=== PATIENT | female | born 1960 | race African-American/Black ===

== ENCOUNTER 2017-09-03 14:10 | Emergency (ER) | payer MEDICARE, MEDICAID ==
[2017-09-03] MEDS ORDERED: Lorazepam 1 MG TAB ONE (15:00)
== END 2017-09-03 15:08 | disposition home or self-care (01) ==
LOC: ERS 14:10
DX: F43.0 Acute stress reaction (principal); I11.0 Hypertensive heart disease with heart failure; I50.9 Heart failure, unspecified; J44.9 Chronic obstructive pulmonary disease, unspecified; E78.5 Hyperlipidemia, unspecified; E11.9 Type 2 diabetes mellitus without complications; F41.9 Anxiety disorder, unspecified; Z87.891 Personal history of nicotine dependence; Z79.82 Long term (current) use of aspirin; Z79.899 Other long term (current) drug therapy
CPT/HCPCS: 99283

== ENCOUNTER 2018-02-26 11:13 | Emergency (ER) | payer MEDICARE, MEDICAID ==
[2018-02-26 12:34] LABS: #Basophils 0.1 thou/uL (0.0-0.2); #Eosinphils 0.1 thou/uL (0.0-0.7); #Lymphocytes 2.3 thou/uL (1.20-3.40); #Monocytes 0.9 thou/uL (0.11-0.59); #Neutrophils 9.1 thou/uL (1.40-6.50); %Basophils 0.5 % (0.0-1.0); %Eosinophils 0.9 % (0.0-10.0); %Lymphocytes 18.4 % (21.0-51.0); %Monocytes 7.3 % (0.0-10.0); %Neutrophils 72.9 % (42.0-75.0); Hemoglobin 12.2 g/dL (12.0-16.0); Mean Corpuscular HGB CONC 32.3 g/dL (32.0-36.0); Mean Corpuscular Hemoglobin 30.6 pg (27.0-31.0); Mean Corpuscular Volume 94.8 fl (81.0-99.0); Mean Platelet Volume 8.2 fL (7.4-10.4); Platelet Count 228 thou/uL (130-400); RBC Distribution Width 13.1 % (11.5-14.5); Red Blood Cell (RBC) Count 3.99 mill/uL (4.20-5.40); White Blood Cell (WBC) Count 12.4 thou/uL (4.8-10.8)
[2018-02-26 12:53] LABS: ALT (SGPT) 8 U/L (8-55); AST (SGOT) 11 U/L (5-34); Alkaline Phosphatase 110 U/L (40-150); Anion Gap 11 mmol/L (10-20); BUN (Urea Nitrogen) 14 mg/dL (9.8-20.1); Bilirubin, Total 0.6 mg/dL (0.2-1.2); Calc. Creatinine Clearance 0 mL/min (70-130); Calcium 9.6 mg/dL (7.8-10.44); Carbon Dioxide 32 mmol/L (22-29); Chloride 96 mmol/L (98-107); Estimated GFR-MDRD 62; Globulin 3.4 g/dL (2.4-3.5); Glucose 193 mg/dL (70-105); Potassium 3.2 mmol/L (3.5-5.1); Protein, Total 7.4 g/dL (6.0-8.3); Sodium 136 mmol/L (136-145)
[2018-02-26] MEDS ORDERED: Indomethacin 25 mg Capsule PO SCH (16:00)
--- NOTE | 2018-02-26 16:20 | RAD ---
THREE VIEWS OF THE LEFT FOOT 02/26/18 INDICATION: History of gout flare up. FINDINGS: There is diffuse osteopenia. No periarticular erosive change is evident. No soft tissue calcification s are noted. There is diffuse soft tissue swelling of the left foot. No acute osseous abnormality is evident. IMPRESSION: 1. Diffuse soft tissue swelling left forefoot. 2. No periarticular erosive changes evident. POS: [facility]
--- NOTE | 2018-02-26 16:21 | RAD ---
THREE VIEWS LEFT ANKLE: History: Left ankle pain. Comparison: None. FINDINGS: There is soft tissue swelling of the ankle and foot. Enthesopathic changes are seen off the calcaneus . There is mild to moderate degenerative change involving the midfoot. IMPRESSION: No acute osseous abnormality. POS: [facility]
--- NOTE | 2018-02-26 18:54 | ULT ---
LEFT LOWER EXTREMITY VENOUS ULTRASOUND: 02/26/18 HISTORY: Bilateral gout with left lower extremity edema for four days. TECHNIQUE: Multiplanar penaloza scale and color doppler images were obtained in a left lower extremity venous ultras ound. Spectral analysis of the doppler waveforms were performed. FINDINGS: The left common femoral vein, profunda femoral vein, superficial femoral vein and popliteal vein are normal in appearance without visible thrombus. These vessels demonstrate normal compression, flow and augmentation. Posterior tibial vein and greater saphenous vein are also patent. IMPRESSION: No evidence of left lower extremity DVT. POS: [facility]
== END 2018-02-26 18:44 | disposition home or self-care (01) ==
LOC: ERS 11:13
DX: M79.662 Pain in left lower leg (principal); E11.9 Type 2 diabetes mellitus without complications; I11.0 Hypertensive heart disease with heart failure; I50.9 Heart failure, unspecified; E66.9 Obesity, unspecified; J44.9 Chronic obstructive pulmonary disease, unspecified; M10.9 Gout, unspecified; F41.9 Anxiety disorder, unspecified; Z87.891 Personal history of nicotine dependence; Z79.899 Other long term (current) drug therapy; Z79.82 Long term (current) use of aspirin
CPT/HCPCS: 36415; 80053; 84550; 85025

== ENCOUNTER 2018-03-28 10:48 | Observation (INO) | payer MEDICARE, MEDICAID ==
[2018-03-28 12:01] LABS: Mean Corpuscular HGB CONC 33.7 g/dL (32.0-36.0); Mean Corpuscular Hemoglobin 31.1 pg (27.0-31.0); Mean Corpuscular Volume 92.1 fl (81.0-99.0); Mean Platelet Volume 9.4 fL (7.4-10.4); Platelet Count 247 thou/uL (130-400); RBC Distribution Width 13.4 % (11.5-14.5); Red Blood Cell (RBC) Count 4.19 mill/uL (4.20-5.40); White Blood Cell (WBC) Count 13.9 thou/uL (4.8-10.8)
[2018-03-28 12:33] LABS: Anion Gap 18 mmol/L (10-20); BUN (Urea Nitrogen) 32 mg/dL (9.8-20.1); Calc. Creatinine Clearance 93 mL/min (70-130); Calcium 9.8 mg/dL (7.8-10.44); Carbon Dioxide 27 mmol/L (22-29); Chloride 94 mmol/L (98-107); Estimated GFR-MDRD 57; Glucose 258 mg/dL (70-105); Potassium 4.1 mmol/L (3.5-5.1); Sodium 135 mmol/L (136-145)
[2018-03-28] MEDS ORDERED: Lidocaine 1% (PF) 30 ML VIAL ONE (13:23)
[2018-03-28 13:30] LABS: Prothrombin Time 13.3 SEC (12.0-14.7)
[2018-03-28 13:35] LABS: PTT 26.4 SEC (22.9-36.1)
[2018-03-28] MEDS ORDERED: Midazolam HCl 2 mg/2 ml Vial ONE (13:43)
[2018-03-28] MEDS ORDERED: Meperidine HCl/PF 25 MG/ML VIAL ONE (13:44)
--- NOTE | 2018-03-28 14:12 | EKG ---
Test Reason : PREOP Blood Pressure : / mmHG Vent. Rate : 080 BPM Atrial Rate : 080 BPM P-R Int : 144 ms QRS Dur : 146 ms QT Int : 438 ms P-R-T Axes : 038 -14 103 degrees QTc Int : 505 ms Normal sinus rhythm Left bundle branch block Abnormal ECG Confirmed by AUSTIN SUMNER ([id number]) on 03/28/2018 2:11:37 PM Referred By: SHARLA Confirmed By:AUSTIN SUMNER
[2018-03-28] MEDS ORDERED: Propofol 500 MG/50 ML VIAL ONE (14:51)
[2018-03-28] MEDS ORDERED: PROPOFOL 200 MG/20 ML VIAL ONE (16:33)
[2018-03-28] MEDS ORDERED: Fentanyl 100 MCG/2 ML VIAL ONE (16:40)
[2018-03-28] MEDS ORDERED: Sodium Chloride 0.9% 10 ML ONE (16:42)
[2018-03-28] MEDS ORDERED: Nitroglycerin 0.4 MG TAB (25 Tab Bottle) SL PRN (18:05)
[2018-03-28] MEDS ORDERED: traMADol HCl 50 MG TAB PO PRN (18:05)
[2018-03-28] MEDS ORDERED: Mag-Al 1200 mg/1200 mg/30 ML UDCUP PO PRN (18:05)
[2018-03-28] MEDS ORDERED: Bisacodyl 10 MG SUPP PR PRN (18:05)
[2018-03-28] MEDS ORDERED: Acetaminophen 325 MG TAB PO PRN (18:05)
[2018-03-28] MEDS ORDERED: Bisacodyl 5 MG TAB PO PRN (18:05)
[2018-03-28] MEDS ORDERED: Temazepam 15 MG CAP PO PRN (18:05)
[2018-03-28] MEDS ORDERED: Ondansetron HCl/PF 4 MG/2 ML Vial IVP PRN (18:05)
[2018-03-28] MEDS ORDERED: Silver Sulfadiazine 1% Cream 50 GM JAR TOP PRN (18:05)
[2018-03-28] MEDS ORDERED: diphenhydrAMINE 25 MG CAP PO PRN (18:05)
[2018-03-28] MEDS ORDERED: Famotidine 20 MG TAB PO PRN (18:11)
[2018-03-28] MEDS ORDERED: Pregabalin 50 MG CAP PO PRN (18:15)
[2018-03-28] MEDS ORDERED: Acetaminophen/Codeine 30-300mg Tablet PO PRN ×2 (18:15)
[2018-03-28 18:21] VITALS: BMI 44.0
--- NOTE | 2018-03-28 19:20 | RAD ---
PORTABLE CHEST ONE VIEW 03/28/18 at 6:24 p.m. HISTORY: Post BIV. FINDINGS: Comparison made with the exam of 08/02/17. The heart size is borderline. A left sided AICD is present. No lobar consolidation, pneumothorax, fra nk pulmonary edema, or pleural effusions are seen. IMPRESSION: No acute process. POS: [facility]
[2018-03-28] MEDS: Lorazepam 0.5 MG TAB PO SCH (19:53)
[2018-03-28] MEDS: Magnesium Oxide 400 MG TAB PO SCH (19:53)
[2018-03-28] MEDS: Carvedilol 25 MG TAB PO SCH (19:53)
[2018-03-28] MEDS: Metoclopramide HCl 10 MG TAB PO SCH (19:53)
[2018-03-28] MEDS: Ferrous Sulfate 325 MG TAB PO SCH (19:53)
[2018-03-28] MEDS: Clindamycin 150 MG CAP PO SCH (19:53)
[2018-03-28] MEDS: HYDROcodone/Acetaminophen 10/325 mg Tablet PO SCH (19:54)
[2018-03-28] MEDS: Sacubitril 49 MG/Valsartan 51 MG TABLET PO SCH (20:39)
[2018-03-28] MEDS ORDERED: Atorvastatin Calcium 40 MG TAB PO SCH (21:00)
[2018-03-28] MEDS ORDERED: hydrALAZINE 25 MG TAB PO SCH (21:00)
[2018-03-28] MEDS ORDERED: Montelukast Sodium 10 mg Tablet PO SCH (21:00)
[2018-03-29] MEDS: Clindamycin 150 MG CAP PO SCH (04:16)
[2018-03-29] MEDS: HYDROcodone/Acetaminophen 10/325 mg Tablet PO SCH ×2 (04:16→10:59)
[2018-03-29 08:29] VITALS: BP 102/63; TEMP 97.3
[2018-03-29] MEDS: Lorazepam 0.5 MG TAB PO SCH (08:46)
[2018-03-29] MEDS: Ferrous Sulfate 325 MG TAB PO SCH (08:46)
[2018-03-29] MEDS: Carvedilol 25 MG TAB PO SCH (08:46)
[2018-03-29] MEDS: Magnesium Oxide 400 MG TAB PO SCH (08:46)
[2018-03-29] MEDS: Metoclopramide HCl 10 MG TAB PO SCH (08:47)
[2018-03-29] MEDS: Sacubitril 49 MG/Valsartan 51 MG TABLET PO SCH (08:47)
[2018-03-29] MEDS ORDERED: Colchicine 0.6 MG TAB PO SCH (09:00)
[2018-03-29] MEDS ORDERED: INSULIN DETEMIR SC SCH (09:00)
[2018-03-29] MEDS ORDERED: Fluticasone Propionate Nasal Spray 16 gm Bottle NASAL SCH (09:00)
[2018-03-29] MEDS ORDERED: Allopurinol 100 MG TAB PO SCH (09:00)
[2018-03-29] MEDS ORDERED: PRE FILLED SC SCH (09:00)
[2018-03-29] MEDS ORDERED: Torsemide 20 MG TAB PO SCH (09:00)
[2018-03-29] MEDS ORDERED: Aspirin 81 mg Enteric Coated Tablet PO SCH (09:00)
[2018-03-30] MEDS ORDERED: Metolazone 2.5 MG TAB PO SCH (08:30)
== END 2018-03-29 12:00 | disposition home or self-care (01) ==
LOC: SDC 10:48 → 2SW 17:47
PROVIDERS: ADMIT Internal Medicine Cardiovascular Disease; ATTEND Internal Medicine Cardiovascular Disease
PROC: 02PA0MZ Removal of Cardiac Lead from Heart, Open Approach (ICD-10-PCS; principal; 2018-03-28)
PROC: 02HK3KZ Insertion of Defibrillator Lead into Right Ventricle, Percutaneous Approach (ICD-10-PCS; 2018-03-28)
DX: I11.0 Hypertensive heart disease with heart failure (principal); I50.22 Chronic systolic (congestive) heart failure; I48.0 Paroxysmal atrial fibrillation; I42.8 Other cardiomyopathies; E11.9 Type 2 diabetes mellitus without complications; E78.5 Hyperlipidemia, unspecified; E66.9 Obesity, unspecified; Z68.41 Body mass index [BMI] 40.0-44.9, adult; Z88.0 Allergy status to penicillin; Z88.1 Allergy status to other antibiotic agents; Z88.8 Allergy status to other drugs, medicaments and biological substances; Z79.82 Long term (current) use of aspirin; Z79.899 Other long term (current) drug therapy; Z98.890 Other specified postprocedural states
CPT/HCPCS: 33225; 36005; 71045; 75820; 80048; 82962 ×2; 85027; 85610; 85730; 93005; 93798; 96374 ×2; C1882; C1900; G0378; 36416; 93010; A4216; J1815; J2001; J2175; J2250; J2704; J3010; J3370; J3490

== ENCOUNTER 2018-12-17 18:35 | Emergency (ER) | payer MEDICARE, MEDICAID ==
[2018-12-17 19:59] LABS: #Basophils 0.1 thou/uL (0.0-0.2); #Eosinphils 0.4 thou/uL (0.0-0.7); #Lymphocytes 3.7 thou/uL (1.20-3.40); #Monocytes 0.6 thou/uL (0.11-0.59); #Neutrophils 3.8 thou/uL (1.40-6.50); %Basophils 1.3 % (0.0-1.0); %Eosinophils 4.6 % (0.0-10.0); %Lymphocytes 43.5 % (21.0-51.0); %Monocytes 6.4 % (0.0-10.0); %Neutrophils 44.1 % (42.0-75.0); Hemoglobin 11.9 g/dL (12.0-16.0); Mean Corpuscular HGB CONC 33.6 g/dL (32.0-36.0); Mean Corpuscular Hemoglobin 31.3 pg (27.0-31.0); Mean Platelet Volume 8.9 fL (7.4-10.4); Platelet Count 182 thou/uL (130-400); RBC Distribution Width 12.9 % (11.5-14.5); White Blood Cell (WBC) Count 8.5 thou/uL (4.8-10.8)
[2018-12-17] MEDS ORDERED: Acetaminophen 500 MG TAB ONE (20:10)
[2018-12-17 21:01] LABS: Albumin 4.7 g/dL (3.5-5.0)
[2018-12-17 21:02] LABS: Chloride 102 mmol/L (98-107); Potassium 4.3 mmol/L (3.5-5.1); Sodium 137 mmol/L (136-145)
[2018-12-17 21:03] LABS: Calcium 10.3 mg/dL (7.8-10.44)
[2018-12-17 21:04] LABS: Globulin 3.1 g/dL (2.4-3.5); Glucose 206 mg/dL (70-105); Protein, Total 7.8 g/dL (6.0-8.3)
[2018-12-17 21:05] LABS: Anion Gap 16 mmol/L (10-20); Carbon Dioxide 23 mmol/L (22-29)
[2018-12-17 21:06] LABS: Bilirubin, Total 0.4 mg/dL (0.2-1.2)
[2018-12-17 21:07] LABS: Alkaline Phosphatase 107 U/L (40-150); Calc. Creatinine Clearance 0 mL/min (70-130); Estimated GFR-MDRD 34
[2018-12-17 21:08] LABS: BUN (Urea Nitrogen) 47 mg/dL (9.8-20.1)
[2018-12-17 21:09] LABS: AST (SGOT) 14 U/L (5-34)
[2018-12-17 21:10] LABS: ALT (SGPT) 12 U/L (8-55)
== END 2018-12-17 22:48 | disposition home or self-care (01) ==
LOC: ERS 18:35
DX: I11.0 Hypertensive heart disease with heart failure (principal); I50.9 Heart failure, unspecified; E11.9 Type 2 diabetes mellitus without complications; E66.9 Obesity, unspecified; J44.9 Chronic obstructive pulmonary disease, unspecified; E78.5 Hyperlipidemia, unspecified; J45.909 Unspecified asthma, uncomplicated; M10.9 Gout, unspecified; F41.9 Anxiety disorder, unspecified; Z87.891 Personal history of nicotine dependence; Z79.82 Long term (current) use of aspirin; Z79.899 Other long term (current) drug therapy
CPT/HCPCS: 36415; 80053; 84484; 85025; 93005

== ENCOUNTER 2020-12-07 13:24 | Outpatient (CLI) | payer MEDICARE, OTHER ==
--- NOTE | 2020-12-07 14:31 | ULT ---
Renal sonogram HISTORY: Renal failure. FINDINGS: Right kidney is 11.5 cm length. Partially exophytic cyst at the inferior pole is 4.2 cm x 4 .0 cm x 3.2 cm greatest diameters. Urinary bladder is unremarkable. Left kidney is 10.1 cm. Minimal prominence of the renal pelvis without dilatation of the calyces is s imilar to the CT from 11/06/2019. IMPRESSION : No evidence of urinary tract obstruction.
== END 2020-12-07 13:25 | disposition home or self-care (01) ==
LOC: BICULT 13:24
PROVIDERS: ATTEND Internal Medicine Nephrology
DX: N18.30 Chronic kidney disease, stage 3 unspecified (principal)
CPT/HCPCS: 76770

== ENCOUNTER 2021-07-26 13:38 | Outpatient (CLI) | payer MEDICARE, MEDICAID | END 2021-07-26 13:39 | disposition home or self-care (01) | LOC: BICCT 13:38 | PROVIDERS: ATTEND Student in an Organized Health Care Education/Training Program | DX: M54.2 Cervicalgia (principal); K11.5 Sialolithiasis | CPT/HCPCS: 70490 ==

== ENCOUNTER 2021-10-16 02:50 | Inpatient (IN) | payer MEDICARE, OTHER ==
[2021-10-16] MEDS ORDERED: Sodium Bicarb 50 MEQ/50 ML Abboject 8.4% SYRINGE ONE (02:52)
[2021-10-16] MEDS ORDERED: Calcium Chloride 1 GM/10 ML Abboject SYRINGE ONE (02:52)
[2021-10-16] MEDS ORDERED: EPINEPHrine 1 MG/10 ML Abboject SYRINGE ONE (02:52)
[2021-10-16 03:10] LABS: Actual Bicarbonate (HCO3a) 18.2 mEq/L (22-28); Analyzer IN Cardio ER; Calcium, Ionized (arterial) 1.56 mmol/L (1.12-1.30); Carboxyhemoglobin (COHb) 0.3 gm% (0.0-3.0); Hemoglobin (Hb) 11.7 g/dL (12.0-16.0); O2 Tension (PaO2), arterial 199.1 mmHg (> 80.0)
[2021-10-16 03:14] LABS: CO2 Tension 87.4 mmHg (35.0-45.0); Puncture Site RFA; pH, Arterial 6.94 (7.35-7.45)
[2021-10-16 03:26] LABS: Mean Corpuscular Hemoglobin 32.7 pg (27.0-31.0); Mean Platelet Volume 8.7 fL (7.4-10.4); Platelet Count 184 thou/uL (130-400); RBC Distribution Width 13.3 % (11.5-14.5); Red Blood Cell (RBC) Count 3.36 mill/uL (4.20-5.40); White Blood Cell (WBC) Count 11.1 thou/uL (4.8-10.8)
[2021-10-16] MEDS ORDERED: Fentanyl CADD 100 ML IV SCH (03:30)
[2021-10-16] MEDS ORDERED: Furosemide 100 MG/10 ML VIAL ONE (03:31)
[2021-10-16 03:40] LABS: Hypochromia SLIGHT = 6-15 cells (100X) (0-5/hpf); Lymphocytes 70 % (21-51); MDiff Complete? YES; Macrocytosis SLIGHT = 6-15 cells (100X) (0-5/hpf); Monocytes 3 % (0-10); Neutrophil 27 % (42-75); Platelet Morphology Comment Appears Adequate
[2021-10-16 03:44] LABS: ALT (SGPT) 172 U/L (8-55); AST (SGOT) 199 U/L (5-34); Albumin 3.7 g/dL (3.4-4.8); Alkaline Phosphatase 127 U/L (40-110); Anion Gap 24 mmol/L (10-20); BUN (Urea Nitrogen) 22 mg/dL (9.8-20.1); Bilirubin, Total 0.3 mg/dL (0.2-1.2); Calc. Creatinine Clearance 0 mL/min (70-130); Calcium 10.3 mg/dL (7.8-10.44); Carbon Dioxide 13 mmol/L (23-31); Chloride 103 mmol/L (98-107); Globulin 2.5 g/dL (2.4-3.5); Glucose 334 mg/dL (80-115); Potassium 4.4 mmol/L (3.5-5.1); Protein, Total 6.2 g/dL (5.8-8.1); Sodium 136 mmol/L (136-145)
[2021-10-16 04:07] LABS: SARS-CoV-2 NAA Rapid Test Not Detected (NotDetected)
[2021-10-16 04:32] LABS: INR-International Normal Ratio 1.2; PTT 38.6 sec (22.9-36.1); Prothrombin Time 14.9 sec (12.0-14.7)
[2021-10-16] MEDS ORDERED: Norepinephrine 8 MG/0.9% NS 250 ML ONE (04:32)
[2021-10-16 05:26] LABS: Actual Bicarbonate (HCO3a) 7.8 mEq/L (22-28); Analyzer IN Cardio ER; Base Excess (BEa) -18.8 mEq/L (-2.0 to +3.0); Calcium, Ionized (arterial) 0.58 mmol/L (1.12-1.30); Carboxyhemoglobin (COHb) 0.1 gm% (0.0-3.0); Potassium - ABG Lab 1.08 mmol/L (3.70-5.30)
[2021-10-16 05:29] LABS: CO2 Tension 21.4 mmHg (35.0-45.0); O2 Tension (PaO2), arterial 31.2 mmHg (> 80.0); pH, Arterial 7.18 (7.35-7.45)
[2021-10-16 05:30] LABS: Hemoglobin (Hb) 4.1 g/dL (12.0-16.0); Puncture Site RRA
[2021-10-16] MEDS ORDERED: Dextrose 50% Abboject 50 ML SYRINGE SLOW IVP PRN (05:38)
[2021-10-16] MEDS ORDERED: Dextrose 5% in Water 1,000 ML IV PRN (05:38)
[2021-10-16 05:42] LABS: Troponin I 0.049 ng/mL (< 0.028)
[2021-10-16 06:45] LABS: Lactic Acid 3.3 mmol/L (0.5-2.2)
[2021-10-16] MEDS ORDERED: Lorazepam 2 MG/ML VIAL SLOW IVP PRN (08:03)
[2021-10-16 08:12] LABS: Actual Bicarbonate (HCO3a) 24.8 mEq/L (22-28); Base Excess (BEa) -0.3 mEq/L (-2.0 to +3.0); CO2 Tension 42.6 mmHg (35.0-45.0); Calcium, Ionized (arterial) 1.18 mmol/L (1.12-1.30); Carboxyhemoglobin (COHb) 0.7 gm% (0.0-3.0); Hemoglobin (Hb) 11.6 g/dL (12.0-16.0); O2 Tension (PaO2), arterial 93.9 mmHg (> 80.0); Potassium - ABG Lab 3.91 mmol/L (3.70-5.30); pH, Arterial 7.38 (7.35-7.45)
[2021-10-16] MEDS ORDERED: Propofol 1,000 MG/100 ML VIAL IV ONE (08:12)
[2021-10-16 08:20] LABS: Puncture Site LRA
[2021-10-16] MEDS ORDERED: Enoxaparin Sodium 40 MG/0.4 ML SYRINGE SC SCH (09:00)
[2021-10-16] MEDS ORDERED: Heparin 5,000 UNITS/ML VIAL SC SCH (09:45)
[2021-10-16] MEDS: Famotidine 20 MG TAB PO SCH (10:21)
[2021-10-16] MEDS ORDERED: Iopamidol-370 76% 500 ML 1 ML ONE (10:23)
[2021-10-16] MEDS ORDERED: Iopamidol 370 76% 50 ML VIAL FS ONE (10:23)
[2021-10-16 10:28] LABS: Lactic Acid 3.1 mmol/L (0.5-2.2)
[2021-10-16 10:36] LABS: Troponin I 0.283 ng/mL (< 0.028)
[2021-10-16] MEDS: HumaLOG 300 UNITS/3 ML VIAL SC PRN ×2 (10:48→15:59)
[2021-10-16 11:00] LABS: CKMB 4.5 ng/mL (0-6.6)
[2021-10-16] MEDS: Clindamycin/D5W 600 MG in Premix Bag 1 BAG IVPB SCH ×3 (12:34→23:24)
[2021-10-16] MEDS: Propofol 1,000 MG/100 ML VIAL IV PRN ×2 (13:26→18:22)
[2021-10-16] MEDS: Furosemide 40 MG/4 ML VIAL SLOW IVP SCH (14:04)
[2021-10-16] MEDS ORDERED: Pantoprazole 40 MG VIAL IVP SCH (18:30)
[2021-10-16] MEDS: Heparin 5,000 UNITS/ML VIAL SC SCH (20:37)
[2021-10-16] MEDS: levETIRAcetam in NS 500 MG in Premix Bag 1 BAG IVPB SCH (20:38)
[2021-10-17] MEDS: Propofol 1,000 MG/100 ML VIAL IV PRN (03:26)
[2021-10-17] MEDS: HumaLOG 300 UNITS/3 ML VIAL SC PRN ×3 (04:00→21:18)
[2021-10-17 04:38] LABS: #Monocytes 0.9 thou/uL (0.11-0.59); #Neutrophils 11.3 thou/uL (1.40-6.50); %Basophils 0.2 % (0.0-1.0); %Eosinophils 0.1 % (0.0-10.0); %Monocytes 6.6 % (0.0-10.0); %Neutrophils 79.2 % (42.0-75.0); Hemoglobin 9.5 g/dL (12.0-16.0); Mean Corpuscular HGB CONC 32.1 g/dL (32.0-36.0); Mean Corpuscular Hemoglobin 31.7 pg (27.0-31.0); Mean Corpuscular Volume 98.7 fL (78.0-98.0); Mean Platelet Volume 9.2 fL (7.4-10.4); Platelet Count 156 thou/uL (130-400); RBC Distribution Width 13.6 % (11.5-14.5); White Blood Cell (WBC) Count 14.3 thou/uL (4.8-10.8)
[2021-10-17 04:56] LABS: ALT (SGPT) 151 U/L (8-55); AST (SGOT) 144 U/L (5-34); Albumin 3.2 g/dL (3.4-4.8); Alkaline Phosphatase 108 U/L (40-110); Anion Gap 15 mmol/L (10-20); BUN (Urea Nitrogen) 34 mg/dL (9.8-20.1); Bilirubin, Total 0.8 mg/dL (0.2-1.2); Calc. Creatinine Clearance 46 mL/min (70-130); Calcium 9.4 mg/dL (7.8-10.44); Carbon Dioxide 25 mmol/L (23-31); Chloride 102 mmol/L (98-107); Globulin 2.3 g/dL (2.4-3.5); Glucose 170 mg/dL (80-115); Potassium 3.8 mmol/L (3.5-5.1); Protein, Total 5.5 g/dL (5.8-8.1); Sodium 138 mmol/L (136-145)
[2021-10-17] MEDS: Clindamycin/D5W 600 MG in Premix Bag 1 BAG IVPB SCH ×4 (05:51→23:50)
[2021-10-17] MEDS: Furosemide 40 MG/4 ML VIAL SLOW IVP SCH ×2 (05:51→13:45)
[2021-10-17 08:14] LABS: Actual Bicarbonate (HCO3a) 21.7 mEq/L (22-28); Base Excess (BEa) 1.3 mEq/L (-2.0 to +3.0); Calcium, Ionized (arterial) 1.13 mmol/L (1.12-1.30); Carboxyhemoglobin (COHb) 0.3 gm% (0.0-3.0); Hemoglobin (Hb) 10.3 g/dL (12.0-16.0); O2 Tension (PaO2), arterial 71.2 mmHg (> 80.0); Potassium - ABG Lab 3.76 mmol/L (3.70-5.30)
[2021-10-17 08:15] LABS: CO2 Tension 22.4 mmHg (35.0-45.0); Puncture Site RRA; pH, Arterial 7.61 (7.35-7.45)
[2021-10-17] MEDS: Famotidine 20 MG TAB PO SCH (08:49)
[2021-10-17] MEDS: levETIRAcetam in NS 500 MG in Premix Bag 1 BAG IVPB SCH ×2 (08:49→21:11)
[2021-10-17] MEDS: Heparin 5,000 UNITS/ML VIAL SC SCH ×2 (08:49→21:11)
[2021-10-17] MEDS ORDERED: FLU VACC QS2021-22(6MOS UP)/PF 60 MCG/0.5 ML SYRINGE IM ONE (09:00)
[2021-10-17] MEDS ORDERED: Prevnar 13-Val Conj/PF 0.5 ML SYRINGE IM ONE (09:00)
[2021-10-17] MEDS ORDERED: Pantoprazole 40 MG VIAL IVP SCH (09:00)
[2021-10-18 04:43] LABS: #Eosinphils 0.1 thou/uL (0.0-0.7); #Lymphocytes 1.7 thou/uL (1.20-3.40); #Monocytes 0.8 thou/uL (0.11-0.59); #Neutrophils 10.1 thou/uL (1.40-6.50); %Basophils 0.2 % (0.0-1.0); %Eosinophils 0.4 % (0.0-10.0); %Lymphocytes 13.7 % (21.0-51.0); %Monocytes 6.3 % (0.0-10.0); %Neutrophils 79.5 % (42.0-75.0); Hemoglobin 8.9 g/dL (12.0-16.0); Mean Corpuscular HGB CONC 33.5 g/dL (32.0-36.0); Mean Corpuscular Hemoglobin 33.2 pg (27.0-31.0); Mean Corpuscular Volume 99.2 fL (78.0-98.0); Mean Platelet Volume 9.2 fL (7.4-10.4); Platelet Count 147 thou/uL (130-400); RBC Distribution Width 13.7 % (11.5-14.5); Red Blood Cell (RBC) Count 2.68 mill/uL (4.20-5.40); White Blood Cell (WBC) Count 12.7 thou/uL (4.8-10.8)
[2021-10-18 04:59] LABS: ALT (SGPT) 103 U/L (8-55); AST (SGOT) 123 U/L (5-34); Albumin 3.1 g/dL (3.4-4.8); Alkaline Phosphatase 94 U/L (40-110); Anion Gap 14 mmol/L (10-20); BUN (Urea Nitrogen) 38 mg/dL (9.8-20.1); Bilirubin, Total 0.9 mg/dL (0.2-1.2); Calc. Creatinine Clearance 48 mL/min (70-130); Calcium 9.2 mg/dL (7.8-10.44); Carbon Dioxide 29 mmol/L (23-31); Chloride 103 mmol/L (98-107); Globulin 2.5 g/dL (2.4-3.5); Glucose 177 mg/dL (80-115); Potassium 3.4 mmol/L (3.5-5.1); Protein, Total 5.6 g/dL (5.8-8.1); Sodium 143 mmol/L (136-145)
[2021-10-18] MEDS: Clindamycin/D5W 600 MG in Premix Bag 1 BAG IVPB SCH ×4 (05:28→23:39)
[2021-10-18] MEDS: Furosemide 40 MG/4 ML VIAL SLOW IVP SCH (05:28)
[2021-10-18] MEDS: HumaLOG 300 UNITS/3 ML VIAL SC PRN ×4 (05:32→23:40)
[2021-10-18 07:42] LABS: Actual Bicarbonate (HCO3a) 27.3 mEq/L (22-28); Base Excess (BEa) 4.4 mEq/L (-2.0 to +3.0); Calcium, Ionized (arterial) 1.12 mmol/L (1.12-1.30); Carboxyhemoglobin (COHb) 0.3 gm% (0.0-3.0); Hemoglobin (Hb) 10.1 g/dL (12.0-16.0); O2 Tension (PaO2), arterial 121.9 mmHg (> 80.0); Potassium - ABG Lab 3.19 mmol/L (3.70-5.30); pH, Arterial 7.52 (7.35-7.45)
[2021-10-18 07:54] LABS: Puncture Site RRA
[2021-10-18] MEDS: levETIRAcetam in NS 500 MG in Premix Bag 1 BAG IVPB SCH ×2 (08:48→20:52)
[2021-10-18] MEDS: Famotidine 20 MG TAB PO SCH (08:48)
[2021-10-18] MEDS: Heparin 5,000 UNITS/ML VIAL SC SCH ×2 (08:48→20:42)
[2021-10-18] MEDS ORDERED: Potassium Chloride 40 MEQ in Sodium Chloride 0.9% 250 ML 250 ML IVPB SCH (09:15)
[2021-10-19] MEDS: HumaLOG 300 UNITS/3 ML VIAL SC PRN ×4 (04:29→22:33)
[2021-10-19 04:35] LABS: #Eosinphils 0.1 thou/uL (0.0-0.7); #Lymphocytes 1.5 thou/uL (1.20-3.40); %Basophils 0.2 % (0.0-1.0); %Eosinophils 0.8 % (0.0-10.0); %Lymphocytes 11.9 % (21.0-51.0); %Monocytes 7.9 % (0.0-10.0); %Neutrophils 79.2 % (42.0-75.0); Hemoglobin 9.5 g/dL (12.0-16.0); Mean Corpuscular HGB CONC 31.9 g/dL (32.0-36.0); Mean Corpuscular Hemoglobin 32.2 pg (27.0-31.0); Mean Platelet Volume 9.3 fL (7.4-10.4); Platelet Count 163 thou/uL (130-400); RBC Distribution Width 13.6 % (11.5-14.5); Red Blood Cell (RBC) Count 2.95 mill/uL (4.20-5.40); White Blood Cell (WBC) Count 12.7 thou/uL (4.8-10.8)
[2021-10-19 04:58] LABS: ALT (SGPT) 85 U/L (8-55); AST (SGOT) 119 U/L (5-34); Albumin 3.4 g/dL (3.4-4.8); Alkaline Phosphatase 99 U/L (40-110); Anion Gap 14 mmol/L (10-20); BUN (Urea Nitrogen) 37 mg/dL (9.8-20.1); Bilirubin, Total 0.7 mg/dL (0.2-1.2); Calc. Creatinine Clearance 56 mL/min (70-130); Calcium 9.9 mg/dL (7.8-10.44); Carbon Dioxide 33 mmol/L (23-31); Chloride 103 mmol/L (98-107); Globulin 2.9 g/dL (2.4-3.5); Glucose 212 mg/dL (80-115); Potassium 3.6 mmol/L (3.5-5.1); Protein, Total 6.3 g/dL (5.8-8.1); Sodium 146 mmol/L (136-145)
[2021-10-19] MEDS: Clindamycin/D5W 600 MG in Premix Bag 1 BAG IVPB SCH ×3 (05:03→18:21)
[2021-10-19 07:51] LABS: Actual Bicarbonate (HCO3a) 30.5 mEq/L (22-28); Base Excess (BEa) 5.8 mEq/L (-2.0 to +3.0); CO2 Tension 45.1 mmHg (35.0-45.0); Calcium, Ionized (arterial) 1.22 mmol/L (1.12-1.30); Carboxyhemoglobin (COHb) 0.2 gm% (0.0-3.0); Hemoglobin (Hb) 10.4 g/dL (12.0-16.0); Potassium - ABG Lab 3.56 mmol/L (3.70-5.30); pH, Arterial 7.45 (7.35-7.45)
[2021-10-19 07:53] LABS: O2 Tension (PaO2), arterial 48.6 mmHg (> 80.0)
[2021-10-19 07:54] LABS: ALV-art Gradient 251.525 mmHg (0-20); Puncture Site LRA
[2021-10-19] MEDS ORDERED: Furosemide 40 MG/4 ML VIAL SLOW IVP SCH (09:00)
[2021-10-19] MEDS: levETIRAcetam in NS 500 MG in Premix Bag 1 BAG IVPB SCH ×2 (09:12→21:32)
[2021-10-19] MEDS: Heparin 5,000 UNITS/ML VIAL SC SCH ×2 (09:12→21:33)
[2021-10-19] MEDS: Famotidine 20 MG TAB PO SCH (09:12)
[2021-10-19] MEDS: Acetaminophen 325 MG TAB PO PRN (13:21)
[2021-10-19] MEDS: Furosemide 40 MG/4 ML VIAL SLOW IVP SCH (13:24)
[2021-10-20] MEDS: Clindamycin/D5W 600 MG in Premix Bag 1 BAG IVPB SCH ×5 (01:15→23:31)
[2021-10-20 04:48] LABS: Hemoglobin 9.6 g/dL (12.0-16.0); Mean Corpuscular HGB CONC 32.7 g/dL (32.0-36.0); Mean Corpuscular Hemoglobin 32.4 pg (27.0-31.0); Mean Corpuscular Volume 99.3 fL (78.0-98.0); Mean Platelet Volume 9.2 fL (7.4-10.4); Platelet Count 185 thou/uL (130-400); RBC Distribution Width 13.3 % (11.5-14.5); Red Blood Cell (RBC) Count 2.96 mill/uL (4.20-5.40); White Blood Cell (WBC) Count 13.4 thou/uL (4.8-10.8)
[2021-10-20 04:56] LABS: Anion Gap 11 mmol/L (10-20); BUN (Urea Nitrogen) 41 mg/dL (9.8-20.1); Calc. Creatinine Clearance 54 mL/min (70-130); Calcium 10.1 mg/dL (7.8-10.44); Carbon Dioxide 35 mmol/L (23-31); Chloride 105 mmol/L (98-107); Glucose 225 mg/dL (80-115); Potassium 3.4 mmol/L (3.5-5.1); Sodium 148 mmol/L (136-145)
[2021-10-20] MEDS: Furosemide 40 MG/4 ML VIAL SLOW IVP SCH ×2 (05:12→13:45)
[2021-10-20] MEDS: HumaLOG 300 UNITS/3 ML VIAL SC PRN ×4 (05:21→23:31)
[2021-10-20 05:39] LABS: Band 11 % (5-11); Lymphocytes 29 % (21-51); MDiff Complete? YES; Monocytes 1 % (0-10); Neutrophil 59 % (42-75)
[2021-10-20 07:51] LABS: Actual Bicarbonate (HCO3a) 30.2 mEq/L (22-28); Base Excess (BEa) 7.3 mEq/L (-2.0 to +3.0); CO2 Tension 36.1 mmHg (35.0-45.0); Calcium, Ionized (arterial) 1.23 mmol/L (1.12-1.30); Carboxyhemoglobin (COHb) 0.3 gm% (0.0-3.0); O2 Tension (PaO2), arterial 98.7 mmHg (> 80.0); Potassium - ABG Lab 3.25 mmol/L (3.70-5.30); pH, Arterial 7.54 (7.35-7.45)
[2021-10-20] MEDS: levETIRAcetam in NS 500 MG in Premix Bag 1 BAG IVPB SCH ×2 (08:28→21:42)
[2021-10-20] MEDS: Famotidine 20 MG TAB PO SCH (08:29)
[2021-10-20] MEDS: Heparin 5,000 UNITS/ML VIAL SC SCH ×2 (08:29→21:27)
[2021-10-20 08:32] LABS: ALV-art Gradient 355.275 mmHg (0-20); Puncture Site LRA
[2021-10-20] MEDS: Dextrose 5% in Water 1,000 ML IV SCH (18:00)
[2021-10-21] MEDS: HumaLOG 300 UNITS/3 ML VIAL SC PRN ×4 (04:43→20:05)
[2021-10-21 04:50] LABS: Mean Corpuscular HGB CONC 33.6 g/dL (32.0-36.0); Mean Corpuscular Hemoglobin 33.5 pg (27.0-31.0); Mean Corpuscular Volume 99.6 fL (78.0-98.0); Mean Platelet Volume 9.1 fL (7.4-10.4); Platelet Count 175 thou/uL (130-400); RBC Distribution Width 13.4 % (11.5-14.5); Red Blood Cell (RBC) Count 2.69 mill/uL (4.20-5.40); White Blood Cell (WBC) Count 14.7 thou/uL (4.8-10.8)
[2021-10-21 05:11] LABS: Anion Gap 12 mmol/L (10-20); BUN (Urea Nitrogen) 45 mg/dL (9.8-20.1); Calc. Creatinine Clearance 56 mL/min (70-130); Calcium 10.1 mg/dL (7.8-10.44); Carbon Dioxide 33 mmol/L (23-31); Chloride 106 mmol/L (98-107); Glucose 270 mg/dL (80-115); Potassium 3.2 mmol/L (3.5-5.1); Sodium 148 mmol/L (136-145)
[2021-10-21 05:35] LABS: Band 9 % (5-11); Eosinophils 1 % (0-10); Lymphocytes 8 % (21-51); MDiff Complete? YES; Monocytes 10 % (0-10); Neutrophil 72 % (42-75); Schistocytes SLIGHT = 2-5 cells (100X) (0-1/hpf)
[2021-10-21] MEDS: Clindamycin/D5W 600 MG in Premix Bag 1 BAG IVPB SCH ×3 (06:11→18:06)
[2021-10-21] MEDS: Furosemide 40 MG/4 ML VIAL SLOW IVP SCH ×2 (06:11→13:56)
[2021-10-21 08:24] LABS: Actual Bicarbonate (HCO3a) 28.7 mEq/L (22-28); Base Excess (BEa) 5.7 mEq/L (-2.0 to +3.0); CO2 Tension 35.6 mmHg (35.0-45.0); Calcium, Ionized (arterial) 1.17 mmol/L (1.12-1.30); Carboxyhemoglobin (COHb) 0.3 gm% (0.0-3.0); Hemoglobin (Hb) 8.6 g/dL (12.0-16.0); O2 Tension (PaO2), arterial 63.4 mmHg (> 80.0); pH, Arterial 7.53 (7.35-7.45)
[2021-10-21 08:27] LABS: Puncture Site LA
[2021-10-21] MEDS: Famotidine 20 MG TAB PO SCH (08:39)
[2021-10-21] MEDS: Heparin 5,000 UNITS/ML VIAL SC SCH ×2 (08:39→20:03)
[2021-10-21] MEDS: levETIRAcetam in NS 500 MG in Premix Bag 1 BAG IVPB SCH ×2 (09:23→20:03)
[2021-10-21] MEDS ORDERED: Electrolyte Replacement Protocol FS PRN (11:30)
[2021-10-21] MEDS ORDERED: Potassium Chloride 40 MEQ in Premix Bag 1 BAG IVPB SCH (12:00)
[2021-10-21] MEDS: Dextrose 5% in Water 1,000 ML IV SCH (13:57)
[2021-10-21 18:14] LABS: Potassium 3.7 mmol/L (3.5-5.1)
[2021-10-22] MEDS: Clindamycin/D5W 600 MG in Premix Bag 1 BAG IVPB SCH ×5 (00:14→23:31)
[2021-10-22 05:01] LABS: Anion Gap 13 mmol/L (10-20); BUN (Urea Nitrogen) 43 mg/dL (9.8-20.1); Calc. Creatinine Clearance 63 mL/min (70-130); Calcium 10.2 mg/dL (7.8-10.44); Carbon Dioxide 31 mmol/L (23-31); Chloride 106 mmol/L (98-107); Glucose 277 mg/dL (80-115); Potassium 3.6 mmol/L (3.5-5.1); Sodium 146 mmol/L (136-145)
[2021-10-22] MEDS: Furosemide 40 MG/4 ML VIAL SLOW IVP SCH ×2 (05:01→14:27)
[2021-10-22] MEDS: HumaLOG 300 UNITS/3 ML VIAL SC PRN ×4 (05:04→21:20)
[2021-10-22 06:27] LABS: Band 15 % (5-11); Eosinophils 1 % (0-10); Hemoglobin 8.8 g/dL (12.0-16.0); Lymphocytes 22 % (21-51); MDiff Complete? YES; Mean Corpuscular HGB CONC 31.5 g/dL (32.0-36.0); Mean Corpuscular Hemoglobin 31.9 pg (27.0-31.0); Mean Platelet Volume 9.3 fL (7.4-10.4); Monocytes 6 % (0-10); Neutrophil 55 % (42-75); Platelet Count 202 thou/uL (130-400); RBC Distribution Width 13.5 % (11.5-14.5); Red Blood Cell (RBC) Count 2.76 mill/uL (4.20-5.40)
[2021-10-22 08:15] LABS: Actual Bicarbonate (HCO3a) 31.4 mEq/L (22-28); Base Excess (BEa) 6.4 mEq/L (-2.0 to +3.0); CO2 Tension 47.6 mmHg (35.0-45.0); Calcium, Ionized (arterial) 1.24 mmol/L (1.12-1.30); Carboxyhemoglobin (COHb) 0.9 gm% (0.0-3.0); Hemoglobin (Hb) 9.7 g/dL (12.0-16.0); Potassium - ABG Lab 3.49 mmol/L (3.70-5.30); pH, Arterial 7.44 (7.35-7.45)
[2021-10-22 08:19] LABS: O2 Tension (PaO2), arterial 47.5 mmHg (> 80.0); Puncture Site LRA
[2021-10-22] MEDS: levETIRAcetam in NS 500 MG in Premix Bag 1 BAG IVPB SCH ×2 (10:30→21:20)
[2021-10-22] MEDS: Heparin 5,000 UNITS/ML VIAL SC SCH ×2 (10:32→21:20)
[2021-10-22] MEDS: Famotidine 20 MG TAB PO SCH (10:32)
[2021-10-22] MEDS: Dextrose 5% in Water 1,000 ML IV SCH ×2 (11:17→17:20)
[2021-10-23] MEDS: Acetaminophen 325 MG TAB PO PRN ×2 (01:53→18:08)
[2021-10-23 03:53] LABS: Hemoglobin 9.2 g/dL (12.0-16.0); Mean Corpuscular HGB CONC 31.3 g/dL (32.0-36.0); Mean Corpuscular Hemoglobin 31.8 pg (27.0-31.0); Mean Platelet Volume 8.7 fL (7.4-10.4); Platelet Count 242 thou/uL (130-400); RBC Distribution Width 13.5 % (11.5-14.5); Red Blood Cell (RBC) Count 2.88 mill/uL (4.20-5.40); White Blood Cell (WBC) Count 14.8 thou/uL (4.8-10.8)
[2021-10-23 04:42] LABS: ALT (SGPT) 40 U/L (8-55); AST (SGOT) 51 U/L (5-34); Alkaline Phosphatase 123 U/L (40-110); Anion Gap 13 mmol/L (10-20); BUN (Urea Nitrogen) 49 mg/dL (9.8-20.1); Bilirubin, Total 0.8 mg/dL (0.2-1.2); Calc. Creatinine Clearance 62 mL/min (70-130); Calcium 10.5 mg/dL (7.8-10.44); Carbon Dioxide 32 mmol/L (23-31); Chloride 106 mmol/L (98-107); Globulin 3.8 g/dL (2.4-3.5); Glucose 339 mg/dL (80-115); Potassium 4.2 mmol/L (3.5-5.1); Protein, Total 6.8 g/dL (5.8-8.1); Sodium 147 mmol/L (136-145)
[2021-10-23 04:43] LABS: Lactic Acid 1.4 mmol/L (0.5-2.2)
[2021-10-23 05:08] LABS: Band 4 % (5-11); Lymphocytes 13 % (21-51); MDiff Complete? YES; Monocytes 10 % (0-10); Myelocyte 2 % (0-0); Neutrophil 71 % (42-75)
[2021-10-23] MEDS: Furosemide 40 MG/4 ML VIAL SLOW IVP SCH ×2 (05:12→14:17)
[2021-10-23] MEDS: Clindamycin/D5W 600 MG in Premix Bag 1 BAG IVPB SCH ×4 (05:13→23:53)
[2021-10-23] MEDS: HumaLOG 300 UNITS/3 ML VIAL SC PRN ×4 (05:16→21:09)
[2021-10-23] MEDS: Dextrose 5% in Water 1,000 ML IV SCH ×3 (05:24→23:53)
[2021-10-23 08:03] LABS: Actual Bicarbonate (HCO3a) 30.2 mEq/L (22-28); Base Excess (BEa) 5.8 mEq/L (-2.0 to +3.0); CO2 Tension 43.4 mmHg (35.0-45.0); Calcium, Ionized (arterial) 1.24 mmol/L (1.12-1.30); Carboxyhemoglobin (COHb) 0.5 gm% (0.0-3.0); Hemoglobin (Hb) 9.5 g/dL (12.0-16.0); O2 Tension (PaO2), arterial 109.1 mmHg (> 80.0); pH, Arterial 7.46 (7.35-7.45)
[2021-10-23 08:04] LABS: Puncture Site RRA
[2021-10-23] MEDS: Heparin 5,000 UNITS/ML VIAL SC SCH ×2 (09:39→21:09)
[2021-10-23] MEDS: Famotidine 20 MG TAB PO SCH (09:39)
[2021-10-23] MEDS: levETIRAcetam in NS 500 MG in Premix Bag 1 BAG IVPB SCH ×2 (09:39→21:09)
[2021-10-23 11:21] LABS: SARS-CoV-2 PCR by NAA Not Detected (NotDetected)
[2021-10-24 04:02] LABS: Hemoglobin 8.6 g/dL (12.0-16.0); Mean Corpuscular HGB CONC 30.5 g/dL (32.0-36.0); Mean Corpuscular Hemoglobin 30.8 pg (27.0-31.0); Mean Platelet Volume 8.4 fL (7.4-10.4); Platelet Count 249 thou/uL (130-400); RBC Distribution Width 13.6 % (11.5-14.5); Red Blood Cell (RBC) Count 2.81 mill/uL (4.20-5.40); White Blood Cell (WBC) Count 19.3 thou/uL (4.8-10.8)
[2021-10-24 04:50] LABS: Anion Gap 13 mmol/L (10-20); BUN (Urea Nitrogen) 41 mg/dL (9.8-20.1); Calc. Creatinine Clearance 69 mL/min (70-130); Calcium 10.2 mg/dL (7.8-10.44); Carbon Dioxide 32 mmol/L (23-31); Chloride 105 mmol/L (98-107); Glucose 367 mg/dL (80-115); Potassium 4.2 mmol/L (3.5-5.1); Sodium 146 mmol/L (136-145)
[2021-10-24 04:57] LABS: Band 14 % (5-11); Lymphocytes 21 % (21-51); MDiff Complete? YES; Neutrophil 64 % (42-75)
[2021-10-24] MEDS: Clindamycin/D5W 600 MG in Premix Bag 1 BAG IVPB SCH (05:13)
[2021-10-24] MEDS: Furosemide 40 MG/4 ML VIAL SLOW IVP SCH ×2 (05:13→12:15)
[2021-10-24] MEDS: HumaLOG 300 UNITS/3 ML VIAL SC PRN ×4 (05:13→22:13)
[2021-10-24] MEDS: Acetaminophen 325 MG TAB PO PRN ×2 (05:24→12:15)
[2021-10-24] MEDS: Heparin 5,000 UNITS/ML VIAL SC SCH ×2 (07:53→20:13)
[2021-10-24] MEDS: levETIRAcetam in NS 500 MG in Premix Bag 1 BAG IVPB SCH ×2 (07:53→20:13)
[2021-10-24] MEDS: Carvedilol 3.125 MG TAB PER TUBE SCH ×2 (07:53→16:52)
[2021-10-24] MEDS: Famotidine 20 MG TAB PO SCH (07:53)
[2021-10-24] MEDS ORDERED: VANCOMYCIN 2 GRAM/400 ML BAG 2 GM in Premix Bag 1 BAG IVPB SCH (09:00)
[2021-10-24] MEDS: Dextrose 5% in Water 1,000 ML IV SCH (22:14)
[2021-10-25] MEDS: HumaLOG 300 UNITS/3 ML VIAL SC PRN ×4 (04:26→21:15)
[2021-10-25 04:29] LABS: Hemoglobin 8.9 g/dL (12.0-16.0); Mean Corpuscular HGB CONC 31.9 g/dL (32.0-36.0); Mean Corpuscular Hemoglobin 32.5 pg (27.0-31.0); Mean Platelet Volume 9.1 fL (7.4-10.4); Platelet Count 255 thou/uL (130-400); RBC Distribution Width 13.7 % (11.5-14.5); Red Blood Cell (RBC) Count 2.74 mill/uL (4.20-5.40); White Blood Cell (WBC) Count 22.4 thou/uL (4.8-10.8)
[2021-10-25 04:38] LABS: Anion Gap 12 mmol/L (10-20); BUN (Urea Nitrogen) 45 mg/dL (9.8-20.1); Calc. Creatinine Clearance 71 mL/min (70-130); Calcium 10.2 mg/dL (7.8-10.44); Carbon Dioxide 32 mmol/L (23-31); Chloride 104 mmol/L (98-107); Glucose 407 mg/dL (80-115); Sodium 144 mmol/L (136-145)
[2021-10-25 05:40] LABS: Band 14 % (5-11); Eosinophils 2 % (0-10); Lymphocytes 12 % (21-51); MDiff Complete? YES; Metamyelocyte 1 % (0-0); Monocytes 7 % (0-10); Myelocyte 1 % (0-0); Neutrophil 63 % (42-75)
[2021-10-25] MEDS: Furosemide 40 MG/4 ML VIAL SLOW IVP SCH ×2 (06:09→14:02)
[2021-10-25] MEDS: NPH, Human Insulin Isophane 300 UNIT/3 ML VIAL SC SCH ×3 (07:58→17:56)
[2021-10-25] MEDS: Famotidine 20 MG TAB PO SCH (09:30)
[2021-10-25] MEDS: Heparin 5,000 UNITS/ML VIAL SC SCH ×2 (09:30→19:53)
[2021-10-25] MEDS: VANCOMYCIN 1.25 GM/250 ML BAG 1.25 GM in Premix Bag 1 BAG IVPB SCH (09:31)
[2021-10-25] MEDS: levETIRAcetam in NS 500 MG in Premix Bag 1 BAG IVPB SCH ×2 (09:31→19:54)
[2021-10-25] MEDS: Acetaminophen 325 MG TAB PO PRN ×2 (16:17→21:15)
[2021-10-25] MEDS: Dextrose 5% in Water 1,000 ML IV SCH ×2 (19:25→21:15)
[2021-10-26] MEDS: NPH, Human Insulin Isophane 300 UNIT/3 ML VIAL SC SCH ×4 (00:05→18:27)
[2021-10-26 01:42] VITALS: BMI 40.1
[2021-10-26] MEDS: HumaLOG 300 UNITS/3 ML VIAL SC PRN ×4 (03:55→22:10)
[2021-10-26 04:14] LABS: Hemoglobin 8.4 g/dL (12.0-16.0); Mean Corpuscular HGB CONC 31.8 g/dL (32.0-36.0); Mean Corpuscular Hemoglobin 32.2 pg (27.0-31.0); Platelet Count 272 thou/uL (130-400); RBC Distribution Width 13.7 % (11.5-14.5); Red Blood Cell (RBC) Count 2.61 mill/uL (4.20-5.40); White Blood Cell (WBC) Count 22.5 thou/uL (4.8-10.8)
[2021-10-26 04:24] LABS: Anion Gap 13 mmol/L (10-20); BUN (Urea Nitrogen) 49 mg/dL (9.8-20.1); Calc. Creatinine Clearance 67 mL/min (70-130); Calcium 10.1 mg/dL (7.8-10.44); Carbon Dioxide 31 mmol/L (23-31); Chloride 104 mmol/L (98-107); Glucose 312 mg/dL (80-115); Potassium 3.9 mmol/L (3.5-5.1); Sodium 144 mmol/L (136-145)
[2021-10-26 04:42] LABS: Band 13 % (5-11); Eosinophils 3 % (0-10); Lymphocytes 17 % (21-51); MDiff Complete? YES; Monocytes 1 % (0-10); Neutrophil 66 % (42-75)
[2021-10-26] MEDS: Furosemide 40 MG/4 ML VIAL SLOW IVP SCH (05:44)
[2021-10-26] MEDS: levETIRAcetam in NS 500 MG in Premix Bag 1 BAG IVPB SCH ×2 (09:13→20:55)
[2021-10-26] MEDS: Famotidine 20 MG TAB PO SCH (09:13)
[2021-10-26] MEDS: Heparin 5,000 UNITS/ML VIAL SC SCH ×2 (09:16→20:56)
[2021-10-26] MEDS: Acetaminophen 325 MG TAB PO PRN (09:35)
[2021-10-26 09:45] LABS: Vancomycin, Trough 13.3 ug/mL
[2021-10-26] MEDS ORDERED: Vancomycin 1.5 GRAM/300 ML BAG 1.5 GM in Premix Bag 1 BAG IVPB SCH (12:00)
[2021-10-27] MEDS: NPH, Human Insulin Isophane 300 UNIT/3 ML VIAL SC SCH ×2 (00:22→06:48)
[2021-10-27] MEDS: VANCOMYCIN 1.25 GM/250 ML BAG 1.25 GM in Premix Bag 1 BAG IVPB SCH (00:32)
[2021-10-27 01:52] VITALS: BP 103/61
[2021-10-27] MEDS: HumaLOG 300 UNITS/3 ML VIAL SC PRN (03:41)
[2021-10-27 04:18] LABS: #Basophils 0.1 thou/uL (0.0-0.2); #Eosinphils 0.2 thou/uL (0.0-0.7); #Lymphocytes 3.7 thou/uL (1.20-3.40); #Monocytes 1.1 thou/uL (0.11-0.59); #Neutrophils 14.5 thou/uL (1.40-6.50); %Basophils 0.4 % (0.0-1.0); %Eosinophils 0.9 % (0.0-10.0); %Lymphocytes 18.8 % (21.0-51.0); %Monocytes 5.6 % (0.0-10.0); %Neutrophils 74.4 % (42.0-75.0); Mean Corpuscular HGB CONC 32.4 g/dL (32.0-36.0); Mean Corpuscular Hemoglobin 32.6 pg (27.0-31.0); Mean Platelet Volume 9.4 fL (7.4-10.4); Platelet Count 280 thou/uL (130-400); RBC Distribution Width 13.7 % (11.5-14.5); Red Blood Cell (RBC) Count 2.46 mill/uL (4.20-5.40); White Blood Cell (WBC) Count 19.5 thou/uL (4.8-10.8)
[2021-10-27 04:37] VITALS: TEMP 103
[2021-10-27 04:43] LABS: Anion Gap 13 mmol/L (10-20); BUN (Urea Nitrogen) 56 mg/dL (9.8-20.1); Calc. Creatinine Clearance 59 mL/min (70-130); Calcium 9.6 mg/dL (7.8-10.44); Carbon Dioxide 30 mmol/L (23-31); Chloride 103 mmol/L (98-107); Glucose 324 mg/dL (80-115); Potassium 3.9 mmol/L (3.5-5.1); Sodium 142 mmol/L (136-145)
[2021-10-27] MEDS ORDERED: Amiodarone 150 MG/3 ML VIAL IVP SCH (05:00)
[2021-10-27] MEDS ORDERED: Amiodarone 450 MG, Admixture Fee 1 EACH in Dextrose 5% in Water 250 ML IVPB SCH (05:00)
[2021-10-27] MEDS ORDERED: EPINEPHrine 1 MG/10 ML Abboject SYRINGE ONE (05:04)
[2021-10-27] MEDS ORDERED: Sodium Bicarb 50 MEQ/50 ML Abboject 8.4% SYRINGE ONE (05:04)
[2021-10-27] MEDS ORDERED: Furosemide 40 MG/4 ML VIAL SLOW IVP SCH (06:00)
== END 2021-10-27 05:50 | disposition expired | DRG 207 ==
LOC: ERS 02:50 → CCU 04:38
PROVIDERS: ADMIT Internal Medicine; ATTEND Hospitalist
PROC: 5A1955Z Respiratory Ventilation, Greater than 96 Consecutive Hours (ICD-10-PCS; principal; 2021-10-16)
PROC: 0BH17EZ Insertion of Endotracheal Airway into Trachea, Via Natural or Artificial Opening (ICD-10-PCS; 2021-10-16)
PROC: 0D9670Z Drainage of Stomach with Drainage Device, Via Natural or Artificial Opening (ICD-10-PCS; 2021-10-16)
PROC: 3E033XZ Introduction of Vasopressor into Peripheral Vein, Percutaneous Approach (ICD-10-PCS; 2021-10-16)
PROC: 02HV33Z Insertion of Infusion Device into Superior Vena Cava, Percutaneous Approach (ICD-10-PCS; 2021-10-16)
PROC: B548ZZA Ultrasonography of Superior Vena Cava, Guidance (ICD-10-PCS; 2021-10-16)
PROC: 4B02XTZ Measurement of Cardiac Defibrillator, External Approach (ICD-10-PCS; 2021-10-16)
PROC: 5A12012 Performance of Cardiac Output, Single, Manual (ICD-10-PCS; 2021-10-27)
DX: J96.01 Acute respiratory failure with hypoxia (principal); I50.23 Acute on chronic systolic (congestive) heart failure; O90.3 Peripartum cardiomyopathy; I42.8 Other cardiomyopathies; I13.0 Hypertensive heart and chronic kidney disease with heart failure and stage 1 through stage 4 chronic kidney disease, or unspecified chronic kidney disease; G93.1 Anoxic brain damage, not elsewhere classified; E87.2 Acidosis; N17.9 Acute kidney failure, unspecified; Z68.41 Body mass index [BMI] 40.0-44.9, adult; J98.11 Atelectasis; Z99.11 Dependence on respirator [ventilator] status; J96.02 Acute respiratory failure with hypercapnia; Z20.822 Contact with and (suspected) exposure to COVID-19; I46.2 Cardiac arrest due to underlying cardiac condition; Z66 Do not resuscitate; I08.3 Combined rheumatic disorders of mitral, aortic and tricuspid valves; E11.22 Type 2 diabetes mellitus with diabetic chronic kidney disease; E78.5 Hyperlipidemia, unspecified; I48.0 Paroxysmal atrial fibrillation; J44.9 Chronic obstructive pulmonary disease, unspecified; N18.30 Chronic kidney disease, stage 3 unspecified; E11.51 Type 2 diabetes mellitus with diabetic peripheral angiopathy without gangrene; E11.40 Type 2 diabetes mellitus with diabetic neuropathy, unspecified; D63.1 Anemia in chronic kidney disease; G25.3 Myoclonus; E66.01 Morbid (severe) obesity due to excess calories; M10.9 Gout, unspecified; G89.4 Chronic pain syndrome; E78.00 Pure hypercholesterolemia, unspecified; R50.9 Fever, unspecified; I44.7 Left bundle-branch block, unspecified; I49.01 Ventricular fibrillation; Z95.810 Presence of automatic (implantable) cardiac defibrillator; Z88.6 Allergy status to analgesic agent; Z88.1 Allergy status to other antibiotic agents; Z88.0 Allergy status to penicillin; Z88.8 Allergy status to other drugs, medicaments and biological substances; Z79.899 Other long term (current) drug therapy; Z79.82 Long term (current) use of aspirin; Z79.51 Long term (current) use of inhaled steroids; Z79.4 Long term (current) use of insulin; R56.9 Unspecified convulsions; Z87.891 Personal history of nicotine dependence
CPT/HCPCS: 31500; 36415; 36416; 36556; 36600; 70450; 70491; 71045; 71275; 80048; 80053; 80202; 82010; 82550; 82553; 82805; 83605; 83880; 84484; 85025; 85610; 85730; 87040; 87070; 87086; 87149; 87205; 92950; 93005; 93010; 93306; 94002; 94003; 94640; 94760; 95816; 95819; 95957; 96365; 96366; 96368; 96375; 99292; C9113; J0171; J0282; J1644; J1815; J1940; J1953; J1956; J2060; J2704; J3010; J3370; J3480; J3490; J7050; J7070; J7620; Q9967; U0002; U0003; U0005